=== PATIENT | male | born 1955 | race Caucasian/White ===

== ENCOUNTER → 2016-06-29 | Day surgery (SDC) | payer BC ==
[~2016-06-29] MED LIST: BUPROPION XL300 M1 PO; DEPAKOTE PO; LISINOPRIL-HCTZ1 T14 PO; OXYCODON HCL-1 UDTAB PO; PRAVACHOL PO; QUETIAPINE FUMA25 MG PO
--- NOTE | ~2016-06-29 | OR ---
Unit #: [id number] #: [id number] Patient: FRANKLYN XIONG [id number] [address] [place], [place] [address] [id number] O MR#: [id number] NAME: FRANKLYN XIONG. ROOM: Date of Procedure: 06/29/2016 Admission Date: 06/29/2016 Surgeon: Gordy Lazo M.D. : 1955 Attending Physician: Gordy Lazo M.D. Primary Care Physician: Generic Doctor Not In System OPERATIVE REPORT PREOPERATIVE DIAGNOSES 1. Peripheral vascular disease. 2. Ischemic foot blue toe syndrome. POSTOPERATIVE DIAGNOSES 1. Peripheral vascular disease. 2. Ischemic foot blue toe syndrome. PROCEDURE PERFORMED Lumbar sympathetic block with intravenous sedation and fluoroscopic guidance for needle localization. INDICATIONS FOR PROCEDURE The patient is a 60-year-old male with significant left foot pain due to ischemia and did not do an amputation due to issues with his poor healing. Plan is for trial of consecutive sympathetic blockade to see if this can improve his circulation via sympathectomy. DESCRIPTION OF PROCEDURE The patient was placed in a prone position. Standard monitors were applied. 2 mg of Versed were given for sedation and anxiolysis, which were adequate. Vital signs remained stable. Sterile prep and drape then of the skin to the left of midline was performed. The skin then was localized with 1% lidocaine. A long 22-gauge Quincke point spinal needle was advanced with biplanar fluoroscopic guidance to the lateral border of the L1 vertebral body and walked off to the anterolateral border and advanced with loss of resistance technique. After confirming proper positioning via loss of resistance and with fluoroscopy and radiographic contrast, a dose of 10 mL of 0.25% bupivacaine was deposited. There was negative intermittent aspiration every 2 to 3 mL. The patient tolerated the procedure otherwise well and was discharged to the recovery room in stable condition. Dictated by... Mushtaq SimP/aquiles TD: 06/29/2016 23:18 JOB #: [id number] Unit #: [id number] #: [id number] Patient: FRANKLYN XIONG OPERATIVE REPORT X Gordy Lazo MD X PROCEDURE OPERATIVE NOTE
== END | disposition home or self-care (01) ==
LOC: CCSC 08:13
DX: I73.9 Peripheral vascular disease, unspecified (principal); I75.022 Atheroembolism of left lower extremity; I10 Essential (primary) hypertension
CPT/HCPCS: J1040; J2250

== ENCOUNTER → 2016-07-06 | Day surgery (SDC) | payer BC ==
--- NOTE | ~2016-07-06 | OR ---
Unit #: [id number] #: [id number] Patient: FRANKLYN XIONG [id number] [address] [place], [place] [address] [id number] O MR#: [id number] NAME: FRANKLYN XIONG ROOM: Date of Procedure: 07/06/2016 Admission Date: 07/06/2016 Surgeon: Gordy Lazo M.D. : 1955 Attending Physician: Gordy Lazo M.D. Primary Care Physician: Rodger Varela M.D. OPERATIVE REPORT PREOPERATIVE DIAGNOSES Ischemic toe and foot, peripheral vascular disease, blue toe syndrome. POSTOPERATIVE DIAGNOSES Ischemic toe and foot, peripheral vascular disease, blue toe syndrome. PROCEDURE PERFORMED Lumbar sympathetic block with intravenous sedation and fluoroscopic guidance for needle localization. INDICATIONS FOR PROCEDURE The patient is a 60-year-old male with previously mentioned diagnosis. He failed to settle with extensive attempts at conservative treatment. There is consideration as to possible amputation. Decision made to give a trial of sympathetic blockade injection done weeks ago resulted in substantial improvement of his pain, improvement in the cyanosis, and much better ability to walk. He is very pleased with the improvement at this point. We are going to proceed with a second injection based on his history, pathology, symptomatology, and treatment options. DESCRIPTION OF PROCEDURE The patient was placed in a prone position. Standard monitors were applied. 2 mg of Versed were given for sedation and anxiolysis, which were adequate. Vital signs remained stable. Sterile prep and drape then of the thoracolumbar area was performed. The skin then to the left of midline at the L1 level was localized with 1% lidocaine. An 18-gauge CytoValetead needle was then advanced via lateral approach with biplanar fluoroscopy. After confirming proper positioning with fluoroscopy and radiographic contrast, as well as loss of resistance technique, a dose of 10 mL of 0.25% bupivacaine were deposited. There was negative intermittent aspiration every 2 to 3 mL. The patient tolerated the procedure otherwise well and was discharged to the recovery room in stable condition. Dictated by... Mushtaq SimP/aquiles TD: 07/06/2016 10:55 JOB #: [id number] Unit #: [id number] #: [id number] Patient: FRANKLYN XIONG OPERATIVE REPORT X Gordy Lazo MD X PROCEDURE OPERATIVE NOTE
== END | disposition home or self-care (01) ==
LOC: CCSC 08:57
DX: I75.029 Atheroembolism of unspecified lower extremity (principal); I73.9 Peripheral vascular disease, unspecified
CPT/HCPCS: J1040; J2250

== ENCOUNTER → 2016-07-13 | Day surgery (SDC) | payer BC ==
--- NOTE | ~2016-07-13 | OR ---
Unit #: [id number] #: [id number] Patient: FRANKLYN XIONG [id number] [address] [place], [place] [address] [id number] O MR#: [id number] NAME: FRANKLYN XIONG. ROOM: Date of Procedure: 07/13/2016 Admission Date: 07/13/2016 Surgeon: Gordy Lazo M.D. : 1955 Attending Physician: Gordy Lazo M.D. OPERATIVE REPORT PREOPERATIVE DIAGNOSES 1. Peripheral vascular disease. 2. Blue toe syndrome. POSTOPERATIVE DIAGNOSES 1. Peripheral vascular disease. 2. Blue toe syndrome. PROCEDURE PERFORMED Lumbar sympathetic block with intravenous sedation and fluoroscopic guidance for needle localization. INDICATIONS FOR PROCEDURE The patient is a 60-year-old male, who was seen chronically with back issues associated with a prior fusion. About 5 months ago, he developed blue toe syndrome with significant ischemic pain in his left foot. This not settle with conservative treatment and amputation was even considered. Decision was made to give him a trial of sympathetic blockade. Two injections of lumbar sympathetic plexus has been done to this point over the last 3 weeks. They were adequately given him nearly 90% improvement. He still is having some pain, but it is much, much better that it was. He has become much more functional and is able to sleep again and is very pleased with the results. We are going to proceed with a final sympathetic block at this point. If the pain does return associated with this ischemic issue, we certainly could repeat trial of sympathetic blockade. This has been discussed with the patient. DESCRIPTION OF PROCEDURE The patient was placed in a prone position. Standard monitors were applied. 2 mg of Versed were given for sedation and anxiolysis, which were adequate. Vital signs remained stable. Sterile prep and drape then of the thoracolumbar area was performed. The skin then to the left of midline at the L1 level was localized with 1% lidocaine. A long 22-gauge Quincke point spinal needle was advanced to the lateral border of the L1 vertebral body. It was then walked off to the anterolateral border. Position was checked with biplanar fluoroscopy and radiographic contrast as well as loss of resistance technique. After confirming proper needle tip positioning in this manner, a dose of 10 mL of 0.25% bupivacaine were deposited. There was negative intermittent aspiration every 2 to 3 mL. The patient tolerated the procedure well and was discharged to the recovery room in stable condition. Unit #: [id number] #: [id number] Patient: FRANKLYN XIONG Dictated by..Mushtaq Medina/aquiles TD: 07/14/2016 01:24 JOB #: [id number] CC: Christopher Pope D.P.M. OPERATIVE REPORT Page 1 of 1 X Gordy Lazo MD X PROCEDURE OPERATIVE NOTE
== END | disposition home or self-care (01) ==
LOC: CCSC 08:55
DX: I75.022 Atheroembolism of left lower extremity (principal); I73.9 Peripheral vascular disease, unspecified; Z98.1 Arthrodesis status; I10 Essential (primary) hypertension
CPT/HCPCS: J1040; J2250